=== PATIENT | female | born 1990 | race Caucasian/White ===

== ENCOUNTER 2018-06-16 21:10 | Emergency (ER) | payer OTHER ==
[~2018-06-16] VITALS: Ht 162.6 cm; Wt 74.4 kg
[2018-06-16] MEDS ORDERED: OBTREX DHA PRE1 EACH (21:18)
== END 2018-06-17 03:21 | disposition home or self-care (01) ==
LOC: ER 21:10
DX: O26.892 Other specified pregnancy related conditions, second trimester (principal); R10.2 Pelvic and perineal pain; Z34.82 Encounter for supervision of other normal pregnancy, second trimester

== ENCOUNTER 2018-08-02 07:00 | Outpatient (CLI) | payer OTHER ==
[~2018-08-02] VITALS: Ht 162.6 cm; Wt 76.2 kg
[~2018-08-02 07:00] MED LIST: OBTREX DHA PRE1 EACH
== END 2018-08-02 17:46 | disposition home or self-care (01) ==
LOC: OBS/DEL 07:00 → LDR 14:49 → OBS/DEL 17:46 → EDSTATUS 08-06 14:19
DX: O26.892 Other specified pregnancy related conditions, second trimester (principal); R10.2 Pelvic and perineal pain; Z34.02 Encounter for supervision of normal first pregnancy, second trimester

== ENCOUNTER 2018-09-23 11:51 | Inpatient (IN) | payer OTHER ==
[~2018-09-23] VITALS: Ht 162.6 cm; Wt 79.4 kg
== END 2018-09-24 11:10 | disposition home or self-care (01) | DRG 833 ==
LOC: LDR 11:51
PROC: BY4FZZZ Ultrasonography of Third Trimester, Single Fetus (ICD-10-PCS; principal; 2018-09-23)
PROC: 4A1HXCZ Monitoring of Products of Conception, Cardiac Rate, External Approach (ICD-10-PCS; 2018-09-23)
DX: O47.03 False labor before 37 completed weeks of gestation, third trimester (principal); Z34.83 Encounter for supervision of other normal pregnancy, third trimester

== ENCOUNTER 2018-11-05 12:30 | Inpatient (IN) | payer OTHER ==
[~2018-11-05] VITALS: Ht 162.6 cm; Wt 81.6 kg
== END 2018-11-24 12:34 | disposition home or self-care (01) | DRG 807 ==
LOC: LDR 11-21 23:16 → OB/GYN 11-22 18:56
PROVIDERS: ADMIT Specialist
PROC: 4A1HXCZ Monitoring of Products of Conception, Cardiac Rate, External Approach (ICD-10-PCS; 2018-11-21)
PROC: 10E0XZZ Delivery of Products of Conception, External Approach (ICD-10-PCS; principal; 2018-11-22)
PROC: 3E033VJ Introduction of Other Hormone into Peripheral Vein, Percutaneous Approach (ICD-10-PCS; 2018-11-22)
PROC: 0HQ9XZZ Repair Perineum Skin, External Approach (ICD-10-PCS; 2018-11-22)
PROC: 4A033R1 Measurement of Arterial Saturation, Peripheral, Percutaneous Approach (ICD-10-PCS; 2018-11-22)
DX: O70.0 First degree perineal laceration during delivery (principal); Z37.0 Single live birth; Z3A.39 39 weeks gestation of pregnancy

== ENCOUNTER 2025-08-19 09:59 | Emergency (ER) | payer OTHER ==
[~2025-08-19] VITALS: Ht 162.6 cm; Wt 81.6 kg
[~2025-08-19 09:59] MED LIST changes: +AMOX-CLAV 875-1 EACH PO; +CIPROFLOXACIN1 EACH OTIC; +IBU600 MG PO; +PEPCID AC20 MG PO
[2025-08-19] MEDS ORDERED: LORazepam 2 MG/ML VIAL IM STA (10:52)
[2025-08-19] MEDS ORDERED: LORazepam 2 MG/ML VIAL ONE (11:39)
[2025-08-19 12:15] LABS: BASO % 0.4 % (0.1-1.2); EOS # 0.13 (0.04-0.54); EOS % 1.0 % (0.7-7.0); LYMPH # 2.68 (1.18-3.74); LYMPH % 21.6 % (19.3-53.1); MEAN PLATELET VOLUME 10.50 fl (9.4-12.4); MONO # 0.52 (0.24-0.82); MONO % 4.2 % (4.7-12.5); NEUT # 9.01 (1.56-6.13); NEUT % 72.5 % (34.0-71.1); RED CELL DISTRIBUTION WIDTH 13.2 % (11.6-14.4)
[2025-08-19 12:48] LABS: ALT/SGPT 20.0 U/L (12-78); AST/SGOT 11.0 U/L (15-37); BILIRUBIN TOTAL 0.43 mg/dL (0.3-1.2); BUN CREA RATIO 20.0 (7.0-25.0); CREATININE SERUM 0.5 mg/dL (0.55-1.02); GFR 142.98; GLOBULINA 3.7 G/DL (2.4-3.5); GLUCOSE FASTING 91.0 mg/dL (65-100); OSMOLALITY SERUM 284.0 MOSM/KG (275-295); TSH 1.06 uIU/mL (0.358-3.74)
[2025-08-19 13:10] LABS: URINE APPEARANCE Cloudy; URINE BILIRRUBIN Negative (NEGATIVE); URINE BLOOD Negative; URINE COLOR Yellow; URINE GLUCOSE Negative (NEGATIVE); URINE KETONE Negative (NEGATIVE); URINE LEUKOCYTE Small; URINE NITRATE Negative; URINE PROTEIN Negative (NEGATIVE); URINE UROBILINOGEN 1.0 E.U./dl
[2025-08-19 13:14] LABS: URINE BACTERIA 2380.6 uL (0.0-1933); URINE EPITHELIAL CELLS 64.9 uL (0.0-38.8); URINE RBC 10.1 uL (0.0-20.8); URINE WBC 143.0 uL (0.0-23.2)
[2025-08-19 13:40] LABS: URINE CAST 0.14 uL (0.0-1.40)
== END 2025-08-19 15:52 | disposition home or self-care (01) ==
LOC: ER 10:00
PROVIDERS: Physician Assistant Medical
DX: N39.0 Urinary tract infection, site not specified (principal); F32.A Depression, unspecified; F41.9 Anxiety disorder, unspecified

== ENCOUNTER → 2025-09-22 | Emergency (ER) | payer OTHER ==
[~2025-09-22] VITALS: Ht 162.6 cm; Wt 79.4 kg
[2025-09-22 14:31] VITALS: BP 110/79; O2SAT 99
== END | disposition left against medical advice (07) ==
LOC: ER 14:27
DX: Z53.21 Procedure and treatment not carried out due to patient leaving prior to being seen by health care provider (principal)